=== PATIENT | male | born 1980 | race Caucasian/White ===

== ENCOUNTER 2019-09-02 09:38 | Emergency (ER) | payer BC, OTHER ==
[~2019-09-02] VITALS: Ht 172.7 cm; Wt 63.5 kg
[~2019-09-02 09:38] MED LIST: AMOXICILLIN 50500 M1 PO; CLEOCIN HCL300 MG PO; HYDROCODON-ACE1 EAC7 PO; IBUPROFEN 600600 M1 PO; NORCO 5-325 TA1 EACH PO
[2019-09-02] MEDS ORDERED: TESSALON PERLE100 MG PO (11:16)
[2019-09-02] MEDS ORDERED: IBUPROFEN 600600 M1 PO (11:16)
[2019-09-02] MEDS ORDERED: TAMIFLU75 MG PO (11:16)
[2019-09-02 11:30] VITALS: BP 105/74
== END 2019-09-02 11:30 | disposition home or self-care (01) ==
LOC: ER 09:38
DX: J11.1 Influenza due to unidentified influenza virus with other respiratory manifestations (principal); Z88.0 Allergy status to penicillin; Z88.8 Allergy status to other drugs, medicaments and biological substances